=== PATIENT | male | born 1960 | race Caucasian/White ===

== ENCOUNTER 2020-02-04 17:16 | Emergency (ER) | payer MEDICARE ==
[2020-02-04 17:27] VITALS: RESP 18
[2020-02-04] MEDS ORDERED: SODIUM CHLORIDE 0.9% 500 ML 500 ML IV STA (17:28)
--- NOTE | 2020-02-04 17:42 | ED ---
General Adult HPI - General Chief complaint: Abdominal Pain Stated complaint: Abd Pain Time Seen by Provider: 02/04/20 17:28 Source: patient Mode of arrival: ambulatory Limitations: no limitations - History of Present Illness Initial comments: Dictation was produced using [employer] dictation software. please excuse any grammatical, word or spelling errors. This patient was cared for during a federal and state declared state of emergency secondary to Covid 19 Chief Complaint: 59-year-old male with past nuchal history of stomach cancer presents with nausea vomiting and abdominal pain History of Present Illness: 59-year-old male he reports that he was recently diagnosed with stomach cancer. Patient states he had a Port-A-Cath placed 1 week ago. Since the Port-A-Cath was placed she's been developing abdominal pain and intermittent episodes of constipation. He was put on a stool softener. States that since being put on the stool softener he's been having intermittent episodes of hard stools and soft stools. Today he had one episode of vomiting. States that his emesis is nonbilious not bloody. Given his comorbidities he was instructed to come to the emergency department for evaluation. He claims of diffuse abdominal pain. His history of exploratory laparoscopy gross diagnosed with stomach cancer. The ROS documented in this emergency department record has been reviewed and confirmed by me. Those systems with pertinent positive or negative responses have been documented in the HPI. All other systems are other negative and/or noncontributory. PHYSICAL EXAM: General Impression: Alert and oriented x3, not in acute distress HEENT: Normocephalic atraumatic, extra-ocular movements intact, pupils equal and reactive to light bilaterally, mucous membranes moist. Cardiovascular: Heart regular rate and rhythm Chest: Able to complete full sentences, no retractions, no tachypnea Abdomen: Mildly distended, non-peritoneal, nontender Musculoskeletal: Pulses present and equal in all extremities, no peripheral jazmín a Motor: no focal deficits noted Neurological: CN II-XII grossly intact, no focal motor or sensory deficits noted Skin: Intact with no visualized rashes Psych: Normal affect and mood ED course: 59-year-old male presents with diffuse abdominal pain vital signs upon arrival are within acceptable limits. Laboratory evaluation obtained. Mild leukocytosis of 1.4. Metabolic panel is unremarkable. Urinalysis shows greater than 182 white blood cells with 16 red blood cells. He does not have any flank pain or back pain. Clinical presentation likely secondary to hemorrhagic cystitis. X-ray shows mild enteritis. Patient tolerating oral intake at bedside. Patient's well- appearing. Consider patient is UTI patient given 1 g of ceftriaxone. Given prescription for antibiotics. Patient agreeable to disposition to home he is advised to follow-up with his primary care physician upon discharge. Return parameters discussed. EKG interpretation: Ventricular rate 92, normal sinus rhythm,. 126, QRS 86, QTC 425. No ME prolongation, no QTC prolongation, no ST or T-wave changes noted. Overall, this EKG is unremarkable - Related Data Home Medications Medication Instructions Recorded Confirmed Losartan Potassium [Cozaar] 100 mg PO DAILY 02/04/20 02/04/20 hydroCHLOROthiazide 25 mg PO DAILY 02/04/20 02/04/20 Previous Rx's Medication Instructions Recorded Cephalexin [Keflex] 500 mg PO Q6HR 7 Days #28 cap 02/04/20 Ondansetron Odt [Zofran Odt] 4 mg PO Q8HR PRN #12 tab 02/04/20 Allergies Allergy/AdvReac Type Severity Reaction Status Date / Time No Known Allergies Allergy Verified 02/04/20 18:20 Review of Systems ROS Statement: Those systems with pertinent positive or pertinent negative responses have been documented in the HPI. ROS Other: All systems not noted in ROS Statement are negative. Past Medical History Past Medical History: Heart Failure, Hypertension History of Any Multi-Drug Resistant Organisms: None Reported Additional Past Surgical History / Comment(s): exploratory lap with biopsy Past Psychological History: No Psychological Hx Reported Smoking Status: Current every day smoker Past Alcohol Use History: None Reported Past Drug Use History: None Reported General Exam Limitations: no limitations Course Vital Signs 02/04/20 17:23 Temperature 99.0 F Pulse Rate 94 Respiratory 18 Rate Blood Pressure 124/86 O2 Sat by Pulse 98 Oximetry Medical Decision Making - Lab Data Result diagrams: 02/04/20 17:55 02/04/20 17:55 Lab Results 02/04/20 02/04/20 02/04/20 Range/Units 17:55 17:55 18:16 WBC 11.4 H (3.8-10.6) k/uL RBC 3.65 L (4.30-5.90) m/uL Hgb 10.9 L (13.0-17.5) gm/dL Hct 33.4 L (39.0-53.0) % MCV 91.5 (80.0-100.0) fL MCH 29.9 (25.0-35.0) pg MCHC 32.7 (31.0-37.0) g/dL RDW 16.6 H (11.5-15.5) % Plt Count 365 (150-450) k/uL Neutrophils % 82 % Lymphocytes % 13 % Monocytes % 3 % Eosinophils % 0 % Basophils % 0 % Neutrophils # 9.4 H (1.3-7.7) k/uL Lymphocytes # 1.5 (1.0-4.8) k/uL Monocytes # 0.4 (0-1.0) k/uL Eosinophils # 0.0 (0-0.7) k/uL Basophils # 0.0 (0-0.2) k/uL Anisocytosis Slight Sodium 134 L (137-145) mmol/L Potassium 4.0 (3.5-5.1) mmol/L Chloride 100 (98-107) mmol/L Carbon Dioxide 27 (22-30) mmol/L Anion Gap 7 mmol/L BUN 13 (9-20) mg/dL Creatinine 0.78 (0.66-1.25) mg/dL Est GFR (CKD-EPI)AfAm >90 (>60 ml/min/1.73 sqM) Est GFR (CKD-EPI)NonAf >90 (>60 ml/min/1.73 sqM) Glucose 131 H (74-99) mg/dL Calcium 9.5 (8.4-10.2) mg/dL Total Bilirubin 0.9 (0.2-1.3) mg/dL AST 19 (17-59) U/L ALT 11 (4-49) U/L Alkaline Phosphatase 94 (38-126) U/L Total Protein 7.0 (6.3-8.2) g/dL Albumin 3.4 L (3.5-5.0) g/dL Lipase 34 (23-300) U/L Urine Color Yellow Urine Appearance Cloudy (Clear) Urine pH 7.0 (5.0-8.0) Ur Specific [place] 1.021 (1.001-1.035) Urine Protein 1+ H (Negative) Urine Glucose (UA) Negative (Negative) Urine Ketones Negative (Negative) Urine Blood Moderate H (Negative) Urine Nitrite Negative (Negative) Urine Bilirubin Negative (Negative) Urine Urobilinogen 6.0 (<2.0) mg/dL Ur Leukocyte Esterase Large H (Negative) Urine RBC 68 H (0-5) /hpf Urine WBC >182 H (0-5) /hpf Urine WBC Clumps Moderate H (None) /hpf Urine Bacteria Many H (None) /hpf Urine Mucus Occasional H (None) /hpf Disposition Clinical Impression: UTI (urinary tract infection), Enteritis Disposition: HOME SELF-CARE Condition: Good Instructions (If sedation given, give patient instructions): Urinary Tract Infection in Men (ED) Additional Instructions: Today your evaluation was positive for urinary tract infection and enteritis. Please follow up with your primary care physician upon discharge. Please seek emergent medical attention if he develops fevers, worsening symptoms. Prescriptions: Cephalexin [Keflex] 500 mg PO Q6HR 7 Days #28 cap Ondansetron Odt [Zofran Odt] 4 mg PO Q8HR PRN #12 tab PRN Reason: Nausea Is patient prescribed a controlled substance at d/c from ED?: No Referrals: Stevie Waggoner MD [Primary Care Provider] - 1-2 days Time of Disposition: 19:10
[2020-02-04 18:10] LABS: Anisocytosis Slight; Basophils % (A) 0 %; Eosinophils % (A) 0 %; HCT 33.4 % (39.0-53.0); HGB 10.9 gm/dL (13.0-17.5); Lymphocytes # (A) 1.5 k/uL (1.0-4.8); Lymphocytes % (A) 13 %; MCH 29.9 pg (25.0-35.0); MCHC 32.7 g/dL (31.0-37.0); MCV 91.5 fL (80.0-100.0); Mean Platelet Volume 7.7; Monocytes # (A) 0.4 k/uL (0-1.0); Monocytes % (A) 3 %; Neutrophils # (A) 9.4 k/uL (1.3-7.7); Neutrophils % (A) 82 %; Platelet Count 365 k/uL (150-450); RBC 3.65 m/uL (4.30-5.90); RDW 16.6 % (11.5-15.5); WBC 11.4 k/uL (3.8-10.6)
[2020-02-04 18:18] LABS: ALT 11 U/L (4-49); AST 19 U/L (17-59); African American GFR (CKD) >90 (>60 ml/min/1.73 sqM); Albumin 3.4 g/dL (3.5-5.0); Alkaline Phosphatase 94 U/L (38-126); Anion Gap 7 mmol/L; Blood Urea Nitrogen 13 mg/dL (9-20); Calcium 9.5 mg/dL (8.4-10.2); Carbon Dioxide 27 mmol/L (22-30); Chloride 100 mmol/L (98-107); Glucose 131 mg/dL (74-99); Non-African American GFR(CKD) >90 (>60 ml/min/1.73 sqM); Sodium 134 mmol/L (137-145); Total Bilirubin 0.9 mg/dL (0.2-1.3)
--- NOTE | 2020-02-04 18:20 | XR ---
Abdomen HISTORY: Pain and vomiting Frontal view the abdomen on 2 images There are air-fluid levels without bowel distention. Lung bases are clear. No pneumoperitoneum. There is a mild spinal curvature, degenerative disc changes in the visualized spine. No pathologic calcifi cation. IMPRESSION: Correlate for enteritis, follow-up as indicated
[2020-02-04] MEDS ORDERED: ONDANSETRON 4 MG/2 ML VIAL IVP STA (18:32)
[2020-02-04 18:42] LABS: Appearance,Urine Cloudy (Clear); Bacteria,Urine Many /hpf; Bilirubin,Urine Negative (Negative); Blood,Urine Moderate (Negative); Color,Urine Yellow; Glucose,Urine (UA) Negative (Negative); Ketones,Urine Negative (Negative); Leukocyte Esterase,Urine Large (Negative); Mucus,Urine Occasional /hpf; Nitrite,Urine Negative (Negative); Protein,Urine 1+ (Negative); RBC,Urine 68 /hpf (0-5); Specific Gravity,Urine 1.021 (1.001-1.035); WBC,Urine >182 /hpf (0-5)
[2020-02-04] MEDS ORDERED: cefTRIAXone IN SWFI 1,000 MG/10 ML SYRINGE IVP STA (18:49)
[2020-02-04 19:27] VITALS: BP 144/93; PULSE 92; TEMP 98.6
== END 2020-02-04 19:26 | disposition home or self-care (01) ==
LOC: EC 17:16
DX: N39.0 Urinary tract infection, site not specified (principal); K52.9 Noninfective gastroenteritis and colitis, unspecified; I11.0 Hypertensive heart disease with heart failure; I50.9 Heart failure, unspecified; F17.200 Nicotine dependence, unspecified, uncomplicated; Z79.899 Other long term (current) drug therapy; Z85.028 Personal history of other malignant neoplasm of stomach
CPT/HCPCS: 36415; 93005; 80053; 83690; 85025; 81001; 87086; 74018; 99284; 96374; 96375; 96361; J2405; J0696

== ENCOUNTER → 2020-02-06 | Outpatient (CLI) | payer MEDICARE ==
--- NOTE | 2020-02-07 14:59 | PE ---
EXAMINATION TYPE: PET CT fusion skull to thigh DATE OF EXAM: 02/06/2020 COMPARISON: None Prior PET/CT: None HISTORY: GIST TECHNIQUE: Following the intravenous administration of 12.062 mCi of F-18 FDG, whole body images are performed from the skull base to the midthigh. Images are reviewed on the computer in the coronal, axial, and sagittal planes. Reconstructed rotating images are created on independent workstation and reviewed on the computer. A localization and attenuation correction CT is performed in conjunction with the PET scan. DLP: 341.07 mGycm SCAN: Initial Blood glucose: 113 mg/dL Average Mediastinum SUV: 1 Average Liver SUV: 1.44 FINDINGS: NECK: There is mild uptake within the tonsillar pillars, likely inflammatory. This is greater on the right with an SUV value 1.67. Left-sided SUV value 1.5 THORAX: There is a focus of radiotracer accumulation along the right mediastinal border with an SUV v alue of 2.16. Image 123. Metastatic lesion is not excluded. There is intense uptake within the lingul a infrahilar region. This has an SUV value 4.38. More medial uptake is at 3.93. 1. There is some subtle uptake within the right middle lobe, image 139. This has an SUV value 1.49 ABDOMEN: Ascites is present. Some mild uptake adjacent to the ascites may be present along the perito jasper wall and pericolic gutters. SUV value is approximately 2.3. PELVIS: There is a focus of radiotracer accumulation within the right hemipelvis with an SUV value of 7.15. This extends towards the midline above the urinary bladder by the SUV value measures 5.15. The re is some mild uptake with an SUV value 2.74 within the inguinal region extending towards the scrota l sac. PET image 267 OSSEOUS STRUCTURES: No abnormal uptake LOCALIZATION CT: Ascites is present. Note is made of cholelithiasis. Small left pleural effusion is p resent. COMPARISON: None IMPRESSION: 1. Increased uptake along the inferior right small bowel loop region likely primary location. 2. Ascites is present. Some mild vague diffuse uptake through the peritoneal surface appears to be pr esent. 3. Focal radiotracer probably at the left lung base but in a couple of additional suspicious areas of the right lung base may be metastatic disease.
== END | disposition home or self-care (01) ==
LOC: RADPETMAIN 11:29
PROVIDERS: ATTEND Internal Medicine Hematology & Oncology
DX: R18.8 Other ascites (principal); C18.0 Malignant neoplasm of cecum
CPT/HCPCS: 78815; A9552

== ENCOUNTER 2020-02-09 09:12 | Day surgery (SDC) | payer MEDICARE ==
[2020-02-09 09:28] VITALS: BP 133/90; PULSE 72; RESP 20; TEMP 98.3
[2020-02-09 09:50] LABS: Mean Platelet Volume 7.8; Platelet Count 353 k/uL (150-450)
[2020-02-09 09:57] LABS: Prothrombin Time 10.6 sec (9.0-12.0)
--- NOTE | 2020-02-09 10:47 | US ---
Ultrasound-guided paracentesis. DATE OF EXAM: 02/09/2020 CLINICAL HISTORY: Ascites Preliminary imaging demonstrated no evidence of significant intra-abdominal fluid. IMPRESSION: Deferred paracentesis due to lack of ascites.
== END 2020-02-09 10:30 | disposition home or self-care (01) ==
LOC: RADPROMAIN 09:12
PROVIDERS: ATTEND Internal Medicine Hematology & Oncology
DX: R18.8 Other ascites (principal); Z53.8 Procedure and treatment not carried out for other reasons
CPT/HCPCS: 36415; 76705; 85049; 85610

== ENCOUNTER → 2020-09-24 | Outpatient (CLI) | payer MEDICARE ==
--- NOTE | 2020-09-27 16:53 | PE ---
Medicine PET/CT HISTORY: Colon carcinoma, subsequent Patient received 12.2 mCi F-18 FDG intravenously delayed scanning was performed from skull base to th e mid thighs. Localization and attenuation correction CT was also performed. Correlation prior nuclear medicine PET/CT dated 02/06/2020 Chest and neck: No cervical or supraclavicular adenopathy. No mediastinal, axillary, or hilar adenopa thy. There is questionable abnormal pleural uptake present bilaterally. SUV in the right lateral pleu ral surface in the lower posterior chest measures 2.1, posteriorly on the left SUV 1.5. The left lowe r lobe within some pleural effusion there is elevated uptake, SUV is 2.2 within the periphery of the lung, left pleural effusion is present greater than right. Multiple pulmonary nodules are present, to o numerous to count, some are likely obscured by effusion, largest on the right measures only 9 to 10 mm on axial image #79. ABDOMEN: Central liver lesion in the left lobe shows an SUV of 3.8, more inferiorly in the medial asp ect of lateral segment of the left lobe there is an exophytic nodule from the liver, SUV is 4.2. The level of the distal esophagus there is some mild activity, SUV 2.1. Activity within the bowel is note d which may be physiologic. There is a paucity of fat which may limit evaluation. Gallbladder somewha t hydropic. Adjacent to the hydropic gallbladder there is a calcification which may resent intrahepat ic gallbladder calcified nodule similar to prior exam Urinary bladder shows a thickened wall is contr acted. Prostate shows some associated calcification. In the midline at the level the umbilicus there is uptake which is intense along the anterior abdomen, SUV is 6. Osseous structures: No suspicious hypermetabolic uptake. No lytic or blastic lesion. Mild uptake may be physiologic. IMPRESSION: There is interval progression in diffuse nodularity within the lungs, liver masses, pleur al effusions, possible pleural uptake
== END ==
LOC: RADPETMAIN 12:02
PROVIDERS: ATTEND Internal Medicine Hematology & Oncology
DX: C18.9 Malignant neoplasm of colon, unspecified (principal); R91.8 Other nonspecific abnormal finding of lung field; R16.0 Hepatomegaly, not elsewhere classified; J90 Pleural effusion, not elsewhere classified
CPT/HCPCS: 78815; A9552

== ENCOUNTER 2020-11-10 16:00 | Emergency (ER) | payer MEDICARE ==
[2020-11-10 16:13] VITALS: TEMP 97.6
[2020-11-10 16:43] LABS: Basophils # (A) 0.1 k/uL (0-0.2); Basophils % (A) 1 %; Eosinophils # (A) 0.2 k/uL (0-0.7); Eosinophils % (A) 3 %; HCT 37.1 % (39.0-53.0); HGB 12.1 gm/dL (13.0-17.5); Lymphocytes % (A) 26 %; MCH 29.9 pg (25.0-35.0); MCHC 32.7 g/dL (31.0-37.0); MCV 91.4 fL (80.0-100.0); Mean Platelet Volume 7.8; Monocytes # (A) 0.3 k/uL (0-1.0); Monocytes % (A) 4 %; Neutrophils # (A) 4.9 k/uL (1.3-7.7); Neutrophils % (A) 65 %; Platelet Count 282 k/uL (150-450); RBC 4.06 m/uL (4.30-5.90); RDW 14.1 % (11.5-15.5); WBC 7.6 k/uL (3.8-10.6)
[2020-11-10] MEDS ORDERED: DEXAMETHASONE SOD PHOSPHATE 10 MG/ML 1 ML VIAL IV STA (16:51)
[2020-11-10] MEDS ORDERED: IPRATROPIUM-ALBUTEROL 3 ML NEB INHALATION STA (16:51)
[2020-11-10 16:53] LABS: ALT 14 U/L (4-49); AST 32 U/L (17-59); African American GFR (CKD) >90 (>60 ml/min/1.73 sqM); Albumin 3.6 g/dL (3.5-5.0); Alkaline Phosphatase 182 U/L (38-126); Anion Gap 10 mmol/L; Blood Urea Nitrogen 12 mg/dL (9-20); Calcium 9.6 mg/dL (8.4-10.2); Carbon Dioxide 28 mmol/L (22-30); Chloride 102 mmol/L (98-107); Glucose 138 mg/dL (74-99); INR 1.1 (<1.2); Lipase 48 U/L (23-300); Magnesium 1.6 mg/dL (1.6-2.3); Non-African American GFR(CKD) >90 (>60 ml/min/1.73 sqM); Partial Thromboplastin Time 22.7 sec (22.0-30.0); Potassium 3.9 mmol/L (3.5-5.1); Prothrombin Time 11.4 sec (9.0-12.0); Sodium 140 mmol/L (137-145); Total Bilirubin 1.1 mg/dL (0.2-1.3); Total Protein 8.4 g/dL (6.3-8.2)
--- NOTE | 2020-11-10 16:57 | ED ---
General Adult HPI - General Chief complaint: Shortness of Breath Stated complaint: SOB Time Seen by Provider: 11/10/20 16:23 Source: patient Mode of arrival: wheelchair Limitations: no limitations - History of Present Illness Initial comments: Dictation was produced using [employer] dictation software. please excuse any grammatical, word or spelling errors. This patient was cared for during a federal and state declared state of emergency secondary to Covid 19 Chief Complaint: 60-year-old male past medical history of colon cancer, heart failure hypertension presents with dyspnea History of Present Illness: Patient is 60-year-old male who states that he is here for dyspnea. Patient states she's been having symptoms for approximately 3 weeks. He was seen by Hamida Villa who is the mid-level provider for Dr. Purvis oncologist. Patient has a history of colon cancer. Wendy loss 20 pounds over the last 3 weeks. Patient states that his symptoms are especially worse when he tries to go to bed at night. He states that he has mucous production is coughing. Patient states his phlegm is nonbloody. Patient denies any fevers. Patient is a regular tobacco user. Continues to use tobacco. Patient denies any history of COPD. The ROS documented in this emergency department record has been reviewed and confirmed by me. Those systems with pertinent positive or negative responses have been documented in the HPI. All other systems are other negative and/or noncontributory. PHYSICAL EXAM: General Impression: Alert and oriented x3, not in acute distress HEENT: Normocephalic atraumatic, extra-ocular movements intact, pupils equal and reactive to light bilaterally, mucous membranes moist. Cardiovascular: Heart regular rate and rhythm Chest: Able to complete full sentences, diminished lung sounds bilaterally Abdomen: abdomen soft, non-tender, non-distended, no organomegaly Musculoskeletal: Pulses present and equal in all extremities, no peripheral edema Motor: no focal deficits noted Neurological: CN II-XII grossly intact, no focal motor or sensory deficits noted Skin: Intact with no visualized rashes Psych: Normal affect and mood ED course: 60-year-old male presents emergency department for dyspnea and weight loss for the last 3 weeks. Vital signs upon arrival are within acceptable limits. Patient's not hypoxic on room air. Is not tachycardic. Laboratory evaluation obtained. CBC unremarkable. Coag panel is negative. Metabolic panel is negative. Troponin elevated 0.242. Flu RSV and coronavirus are negative. Chest x-ray shows moderate left and small right pleural effusion associated with atelectasis versus pneumonia. Nodular opacities in the right greater than left lung which could represent pulmonary metastatic disease. CT of the chest abdomen pelvis was obtained showing progression of pulmonary and liver metastatic disease with a lung nodules and liver lesions seen. Is also gallbladder distention with stone at the gallbladder neck. Patient does not have any right upper quadrant pain. He has no fever or abdominal symptoms. Patient's only complaint is dyspnea. Labs and imaging studies were discussed with patient. Patient wants to be discharged. He understands the risk of being discharged that his symptoms are acutely worsened. He states that he wants to be discharged so he can state his apartment tonight and go to [place] where most of his care was performed in the past to treat his colon cancer. I recommended the patient not leave. He understands the risk of leaving given that patient is lab and radiographic abnormalities.. Patient is willing to sign out AGAINST MEDICAL ADVICE. Patient understands that by one home he could express worsening morbidity or mortality. Patient states that he wants to stay in his apartment tonight and will go to [facility] the following day to be admitted to the care of his usual medical staff. Risks, Benefits, and Treatment alternatives were discussed in detail with the patient. The patient is alert and oriented X 3 and has the capacity to make an informed decision. The risks of increased morbidity including the possibly of were explained to and understood by the patient who is choosing to leave against medical advice. The patient is encouraged to return any time should they want further treatment and diagnostic investigation. EKG interpretation: Ventricular rate 89, sinus rhythm,. Interval 126, QRS 96, QTC 467. No [place] prolongation, no QTC prolongation, no ST or T-wave changes noted. EKG compared to 02/04/2020 showing no changes. Overall, this EKG is unremarkable - Related Data Home Medications Medication Instructions Recorded Confirmed Losartan Potassium [Cozaar] 100 mg PO DAILY 02/04/20 11/10/20 hydroCHLOROthiazide 25 mg PO DAILY 02/04/20 11/10/20 ALPRAZolam [Xanax] 0.25 mg PO DAILY PRN 02/11/20 11/10/20 Albuterol Inhaler [Ventolin Hfa 2 puff INHALATION RT-Q6H PRN 11/10/20 11/10/20 Inhaler] Gabapentin [Neurontin] 300 mg PO BID 11/10/20 11/10/20 HYDROcodone/APAP 10-325MG [[place] 1 tab PO Q6H PRN 11/10/20 11/10/20 10-325] Allergies Allergy/AdvReac Type Severity Reaction Status Date / Time No Known Allergies Allergy Verified 11/10/20 17:36 Review of Systems ROS Statement: Those systems with pertinent positive or pertinent negative responses have been documented in the HPI. ROS Other: All systems not noted in ROS Statement are negative. Past Medical History Past Medical History: Cancer, Heart Failure, Hypertension Additional Past Medical History / Comment(s): eascites, colon CA unable to have surgery, paracentsis at [facility] in December. History of Any Multi-Drug Resistant Organisms: None Reported Additional Past Surgical History / Comment(s): exploratory lap with biopsy, Paracentesis Past Anesthesia/Blood Transfusion Reactions: No Reported Reaction Past Psychological History: No Psychological Hx Reported Smoking Status: Current some day smoker Past Alcohol Use History: None Reported Past Drug Use History: None Reported - Past Family History Father History Unknown: Yes General Exam Limitations: no limitations Course Vital Signs 11/10/20 11/10/20 11/10/20 16:09 17:11 17:14 Temperature 97.6 F Pulse Rate 96 86 86 Respiratory 20 16 Rate Blood Pressure 158/102 153/103 O2 Sat by Pulse 96 98 Oximetry 11/10/20 11/10/20 17:23 18:41 Temperature Pulse Rate 88 64 Respiratory 16 Rate Blood Pressure 152/101 O2 Sat by Pulse 97 Oximetry Medical Decision Making - Lab Data Result diagrams: 11/10/20 16:30 11/10/20 16:30 Lab Results 11/10/20 11/10/20 11/10/20 Range/Units 16:30 16:30 16:30 WBC 7.6 (3.8-10.6) k/uL RBC 4.06 L (4.30-5.90) m/uL Hgb 12.1 L (13.0-17.5) gm/dL Hct 37.1 L (39.0-53.0) % MCV 91.4 (80.0-100.0) fL MCH 29.9 (25.0-35.0) pg MCHC 32.7 (31.0-37.0) g/dL RDW 14.1 (11.5-15.5) % Plt Count 282 (150-450) k/uL MPV 7.8 Neutrophils % 65 % Lymphocytes % 26 % Monocytes % 4 % Eosinophils % 3 % Basophils % 1 % Neutrophils # 4.9 (1.3-7.7) k/uL Lymphocytes # 2.0 (1.0-4.8) k/uL Monocytes # 0.3 (0-1.0) k/uL Eosinophils # 0.2 (0-0.7) k/uL Basophils # 0.1 (0-0.2) k/uL PT 11.4 (9.0-12.0) sec INR 1.1 (<1.2) APTT 22.7 (22.0-30.0) sec Sodium 140 (137-145) mmol/L Potassium 3.9 (3.5-5.1) mmol/L Chloride 102 (98-107) mmol/L Carbon Dioxide 28 (22-30) mmol/L Anion Gap 10 mmol/L BUN 12 (9-20) mg/dL Creatinine 0.73 (0.66-1.25) mg/dL Est GFR (CKD-EPI)AfAm >90 (>60 ml/min/1.73 sqM) Est GFR (CKD-EPI)NonAf >90 (>60 ml/min/1.73 sqM) Glucose 138 H (74-99) mg/dL Plasma Lactic Acid Grant (0.7-2.0) mmol/L Calcium 9.6 (8.4-10.2) mg/dL Magnesium 1.6 (1.6-2.3) mg/dL Total Bilirubin 1.1 (0.2-1.3) mg/dL AST 32 (17-59) U/L ALT 14 (4-49) U/L Alkaline Phosphatase 182 H (38-126) U/L Troponin I (0.000-0.034) ng/mL NT-Pro-B Natriuret Pep pg/mL Total Protein 8.4 H (6.3-8.2) g/dL Albumin 3.6 (3.5-5.0) g/dL Lipase 48 (23-300) U/L Influenza Type A (PCR) (Not Detectd) Influenza Type B (PCR) (Not Detectd) RSV (PCR) (Not Detectd) SARS-CoV-2 (PCR) (Not Detectd) 11/10/20 11/10/20 11/10/20 Range/Units 16:30 16:30 16:30 WBC (3.8-10.6) k/uL RBC (4.30-5.90) m/uL Hgb (13.0-17.5) gm/dL Hct (39.0-53.0) % MCV (80.0-100.0) fL MCH (25.0-35.0) pg MCHC (31.0-37.0) g/dL RDW (11.5-15.5) % Plt Count (150-450) k/uL MPV Neutrophils % % Lymphocytes % % Monocytes % % Eosinophils % % Basophils % % Neutrophils # (1.3-7.7) k/uL Lymphocytes # (1.0-4.8) k/uL Monocytes # (0-1.0) k/uL Eosinophils # (0-0.7) k/uL Basophils # (0-0.2) k/uL PT (9.0-12.0) sec INR (<1.2) APTT (22.0-30.0) sec Sodium (137-145) mmol/L Potassium (3.5-5.1) mmol/L Chloride (98-107) mmol/L Carbon Dioxide (22-30) mmol/L Anion Gap mmol/L BUN (9-20) mg/dL Creatinine (0.66-1.25) mg/dL Est GFR (CKD-EPI)AfAm (>60 ml/min/1.73 sqM) Est GFR (CKD-EPI)NonAf (>60 ml/min/1.73 sqM) Glucose (74-99) mg/dL Plasma Lactic Acid Grant 1.7 (0.7-2.0) mmol/L Calcium (8.4-10.2) mg/dL Magnesium (1.6-2.3) mg/dL Total Bilirubin (0.2-1.3) mg/dL AST (17-59) U/L ALT (4-49) U/L Alkaline Phosphatase (38-126) U/L Troponin I 0.242 H* (0.000-0.034) ng/mL NT-Pro-B Natriuret Pep 376 pg/mL Total Protein (6.3-8.2) g/dL Albumin (3.5-5.0) g/dL Lipase (23-300) U/L Influenza Type A (PCR) (Not Detectd) Influenza Type B (PCR) (Not Detectd) RSV (PCR) (Not Detectd) SARS-CoV-2 (PCR) (Not Detectd) 11/10/20 Range/Units 17:07 WBC (3.8-10.6) k/uL RBC (4.30-5.90) m/uL Hgb (13.0-17.5) gm/dL Hct (39.0-53.0) % MCV (80.0-100.0) fL MCH (25.0-35.0) pg MCHC (31.0-37.0) g/dL RDW (11.5-15.5) % Plt Count (150-450) k/uL MPV Neutrophils % % Lymphocytes % % Monocytes % % Eosinophils % % Basophils % % Neutrophils # (1.3-7.7) k/uL Lymphocytes # (1.0-4.8) k/uL Monocytes # (0-1.0) k/uL Eosinophils # (0-0.7) k/uL Basophils # (0-0.2) k/uL PT (9.0-12.0) sec INR (<1.2) APTT (22.0-30.0) sec Sodium (137-145) mmol/L Potassium (3.5-5.1) mmol/L Chloride (98-107) mmol/L Carbon Dioxide (22-30) mmol/L Anion Gap mmol/L BUN (9-20) mg/dL Creatinine (0.66-1.25) mg/dL Est GFR (CKD-EPI)AfAm (>60 ml/min/1.73 sqM) Est GFR (CKD-EPI)NonAf (>60 ml/min/1.73 sqM) Glucose (74-99) mg/dL Plasma Lactic Acid Grant (0.7-2.0) mmol/L Calcium (8.4-10.2) mg/dL Magnesium (1.6-2.3) mg/dL Total Bilirubin (0.2-1.3) mg/dL AST (17-59) U/L ALT (4-49) U/L Alkaline Phosphatase (38-126) U/L Troponin I (0.000-0.034) ng/mL NT-Pro-B Natriuret Pep pg/mL Total Protein (6.3-8.2) g/dL Albumin (3.5-5.0) g/dL Lipase (23-300) U/L Influenza Type A (PCR) Not Detected (Not Detectd) Influenza Type B (PCR) Not Detected (Not Detectd) RSV (PCR) Not Detected (Not Detectd) SARS-CoV-2 (PCR) Not Detected (Not Detectd) Disposition Clinical Impression: Respiratory failure, Elevated troponin Disposition: Left Against Medical Advice Condition: Fair Is patient prescribed a controlled substance at d/c from ED?: No Referrals: Nonstaff,Physician [Primary Care Provider] - 1-2 days
[2020-11-10 17:13] VITALS: RESP 16
--- NOTE | 2020-11-10 17:56 | XR ---
EXAM: XR Chest, 1 View CLINICAL HISTORY: ITS.REASON XR Reason: dyspnea TECHNIQUE: Frontal view of the chest. COMPARISON: None FINDINGS: Hardware: Right-sided Port-A-Cath terminates in the region of the SVC. Lungs/pleura: Moderate left and small right pleural effusions. Associated atelectasis versus pneumonia. Nodular opacities in right greater than left lungs. Heart/mediastinum: Normal. No cardiomegaly. Soft tissues: Unremarkable. Bones: No acute fracture. Degenerative changes of the spine. Upper abdomen: Normal. IMPRESSION: 1. Moderate left and small right pleural effusions. Associated atelectasis versus pneumonia. 2. Nodular opacities in right greater than left lungs which could represent pulmonary metastases.
--- NOTE | 2020-11-10 18:41 | CT ---
EXAMINATION TYPE: CT ChestAbdPelvis w con DATE OF EXAM: 11/10/2020 COMPARISON: PET/CT 09/24/2020. Same-day radiograph. HISTORY: Dyspnea and weight loss. CT DLP: 754.7 mGycm Automated exposure control for dose reduction was used. CONTRAST: CT scan of the chest, abdomen and pelvis is performed without Oral Contrast and with IV Contrast, pat ient injected with 100 mL of Isovue 300. FINDINGS: LUNGS: Redemonstrated are bilateral scattered innumerable pulmonary nodules, too many to count and me asure subcentimeter to 1.3 cm. There is interval increase in number and size of the pulmonary nodules . There are recurrent moderate bilateral pleural effusions. There is mild left greater than right adj acent atelectasis. Multiple low attenuating foci are seen within the partially collapsed lungs measur ing up to 1.2 cm. No pneumothorax. MEDIASTINUM: There are no greater than 1 cm hilar or mediastinal lymph nodes. No pericardial effusi on is seen. OTHER: No additional significant abnormality is seen. LIVER/GB: Interval demonstration of innumerable scattered low attenuating hepatic foci measuring subc entimeter to 2 cm. Redemonstrated gallstone in the region of the gallbladder neck. There is moderate gallbladder distention without significant wall thickening or pericholecystic fluid. PANCREAS: No significant abnormality is seen. SPLEEN: No significant abnormality is seen. ADRENALS: 1.7 cm thickening of the left adrenal gland. Right adrenal gland is within normal limits.. KIDNEYS: No significant abnormality is seen. BOWEL: There is no evidence of few bowel loops in the right upper quadrant. No overt bowel obstructi on. There is edgardo appearance of the mesentery. Small volume abdominal ascites is seen. No free air REPRODUCTIVE ORGANS: No gross abnormality seen. LYMPH NODES: No greater than 1 cm abdominal or pelvic lymph nodes are appreciated. OSSEOUS STRUCTURES: No acute abnormality is seen. Redemonstrated are multiple small lytic lesions wit hin the pelvic bones most notable in the sacrum and iliac bone. OTHER: None IMPRESSION: Progression of pulmonary and liver metastatic disease with innumerable lung nodules and liver lesions seen. Recurrent moderate pleural effusions. Small abdominal ascites. Unchanged left adrenal gland thickening and pelvic bowel lytic lesions. Gallbladder distention with stone at gallbladder neck. Acute cholecystitis cannot be excluded. Nonspecific prominent bowel loops in the upper outer quadrant without overt bowel obstruction, may re late to ileus.
[2020-11-10 18:44] VITALS: BP 152/101; PULSE 64
== END 2020-11-10 19:05 | disposition left against medical advice (07) ==
LOC: EC 16:00
DX: J96.90 Respiratory failure, unspecified, unspecified whether with hypoxia or hypercapnia (principal); R79.89 Other specified abnormal findings of blood chemistry; R63.4 Abnormal weight loss; I11.0 Hypertensive heart disease with heart failure; I50.9 Heart failure, unspecified; F17.200 Nicotine dependence, unspecified, uncomplicated; Z20.822 Contact with and (suspected) exposure to COVID-19; Z85.038 Personal history of other malignant neoplasm of large intestine; Z79.899 Other long term (current) drug therapy; Z79.51 Long term (current) use of inhaled steroids
CPT/HCPCS: 36415; 94640; 93005; 83880; 80053; 83605; 83690; 83735; 84484; 85025; 85610; 85730; 87636; 71045; 71260; 74177; 99285; 96374; J1100; Q9967